=== PATIENT | female | born 1975 | race Caucasian/White ===

== ENCOUNTER 2022-04-19 12:03 | Emergency (ER) | payer OTHER ==
[~2022-04-19] VITALS: Ht 157.5 cm; Wt 79.4 kg
[2022-04-19 12:26] VITALS: BP 122/75
--- NOTE | 2022-04-19 13:06 | NUR ---
Patient ambulated with steady gait to bed 5.
[2022-04-19] MEDS ORDERED: CEPH-588 PO (13:20)
--- NOTE | 2022-04-19 13:44 | NUR ---
46 Y/O F BIB SELF C/O DISCHARGE AND MILD BLEEDING AT SURGERY SITE THAT SHE HAD IN [place]. PT STATED THE SITE OPENED UP AFTER SHE REMOVED THE TAPE. C/O 0 AT THIS TIME. NKA OR PMH
--- NOTE | 2022-04-19 13:53 | NUR ---
Patient discharged with v/s stable. Written and verbal after care instructions given and explained. Patient alert, oriented and verbalized understanding of instructions. Ambulatory with steady gait. All questions addressed prior to discharge. ID band removed. Patient advised to follow up with PMD. Rx of DEPHALEXIN given. Opportunity to ask questions provided and answered.
== END 2022-04-19 13:53 | disposition home or self-care (01) ==
LOC: MED 12:03
DX: T81.31XA Disruption of external operation (surgical) wound, not elsewhere classified, initial encounter (principal); Z98.84 Bariatric surgery status; Z79.899 Other long term (current) drug therapy; Y83.8 Other surgical procedures as the cause of abnormal reaction of the patient, or of later complication, without mention of misadventure at the time of the procedure; Y92.89 Other specified places as the place of occurrence of the external cause
CPT/HCPCS: 87070; 87075; 99283